=== PATIENT | male | born 1935 | race Caucasian/White ===

== ENCOUNTER 2022-03-06 11:36 | Day surgery (SDC) | payer MEDICARE ==
[2022-03-01 13:00] LABS: BASOPHILS % (AUTO) 0.7 % (0-1); EOSINOPHILS # (AUTO) 0.1 X10'3 (0-0.9); HEMATOCRIT 27.8 % (42.0-52.0); HEMOGLOBIN 9.1 g/dl (14.0-17.9); LYMPHOCYTES # (AUTO) 0.5 X10'3 (1.1-4.8); LYMPHOCYTES % (AUTO) 8.7 % (21-51); MEAN CORPUSCULAR HEMOGLOBIN 34.9 PG (27.0-31.0); MEAN CORPUSCULAR HGB CONC 32.6 g/dL (33.0-36.5); MEAN CORPUSCULAR VOLUME 107.4 FL (78-98); MEAN PLATELET VOLUME 6.5 FL (7.4-10.4); MONOCYTES # (AUTO) 0.6 X10'3 (0-0.9); MONOCYTES % (AUTO) 10.5 % (2-12); NEUTROPHILS # (AUTO) 4.4 X10'3 (1.8-7.7); NEUTROPHILS % (AUTO) 78.1 % (42-75); PLATELET COUNT 194 X10'3 (140-440); RED BLOOD COUNT 2.59 X10'6 (4.70-6.10); RED CELL DISTRIBUTION WIDTH 17.9 % (11.5-14.5); WHITE BLOOD COUNT 5.6 X10'3 (4.5-11.0)
[2022-03-01 13:10] LABS: ALBUMIN 2.9 G/DL (3.4-5.0); ANION GAP 5 (8-16); BLOOD UREA NITROGEN 31 MG/DL (7-18); BUN/CREATININE RATIO 27.4 (5.4-32.0); CALCIUM 8.9 MG/DL (8.5-10.1); CHLORIDE 103 MMOL/L (99-107); CREATININE 1.13 MG/DL (0.60-1.10); GLUCOSE 92 MG/DL (70-104); POTASSIUM 4.4 MMOL/L (3.5-5.1); SODIUM 138 MMOL/L (135-145); TOTAL CARBON DIOXIDE 29.6 MMOL/L (24-32); eGFR 61 ML/MIN
[2022-03-01 13:13] LABS: APTT 27 SECONDS (22-32)
[~2022-03-06] VITALS: Ht 182.9 cm; Wt 50.3 kg
[2022-03-06] VITALS (10 sets, daily range): BP systolic 108–163; BP diastolic 61–77
[~2022-03-06 11:36] MED LIST: iohexol 350MG/ML 100ml bottle IV ONE
[2022-03-06] MEDS ORDERED: diphenhydrAMINE 25mg capsule PO PRN (12:15)
[2022-03-06] MEDS ORDERED: normal saline 1,000 ML IV SCH (12:15)
[2022-03-06] MEDS ORDERED: LORazepam 0.5 MG tablet PO PRN (12:15)
[2022-03-06] MEDS ORDERED: APIX5TAB3 PO (12:27)
[2022-03-06] MEDS ORDERED: METO50TA16 PO (12:38)
[2022-03-06] MEDS ORDERED: LIDOcaine 1% 30ml preserv. free vial ONE (13:53)
[2022-03-06] MEDS ORDERED: heparin 1,000unit/ml 10ml vial 10 ML ONE (13:53)
[2022-03-06] MEDS ORDERED: verapamil 2.5 mg/ml inj IV ONE (13:53)
[2022-03-06] MEDS ORDERED: midazolam 1 mg/ML 2ml injection ONE (13:53)
[2022-03-06] MEDS ORDERED: fentaNYL/PF 50MCG/1 ML 2ML syringe ONE (13:53)
[2022-03-06] MEDS ORDERED: nitroGLYCERIN-Tridil 50MG/D5W 250 ML IV ONE (13:53)
[2022-03-06 14:48] LABS: ISTAT HGB ART 8.8 g/dl (14.0-18.0); ISTAT Hct ART 26 %PCV (42-52); ISTAT O2 SATURATION ARTERIAL 99 % (95-98); ISTAT SOURCE ART
[2022-03-06 16:07] LABS: ISTAT Hct MIX 26 %PCV (42-52); ISTAT O2 SATURATION MIX VENOUS 68 % (60-80); ISTAT SOURCE VEN
[2022-03-06] MEDS ORDERED: ondansetron/PF 4mg/2ml inj IV PRN (16:30)
[2022-03-06] MEDS ORDERED: normal saline 1000ml 1,000 ML IV SCH (16:30)
[2022-03-06] MEDS ORDERED: proCHLORperazine 10 MG/2 ml inj IV PRN (16:30)
[2022-03-07] MEDS ORDERED: ATOR40TA72 PO (13:39)
[2022-03-07] MEDS ORDERED: AMIO200T61 PO (17:11)
== END 2022-03-06 20:00 | disposition home or self-care (01) ==
LOC: SSTAY O 11:36 → EDBD 17:00 → SSTAY O 20:00
PROVIDERS: ATTEND Internal Medicine Interventional Cardiology
DX: I35.0 Nonrheumatic aortic (valve) stenosis (principal); J44.9 Chronic obstructive pulmonary disease, unspecified; I10 Essential (primary) hypertension; I48.91 Unspecified atrial fibrillation; E78.5 Hyperlipidemia, unspecified; D53.9 Nutritional anemia, unspecified; Z79.899 Other long term (current) drug therapy; Z79.01 Long term (current) use of anticoagulants; Z88.0 Allergy status to penicillin; Z87.891 Personal history of nicotine dependence
CPT/HCPCS: 36415; 80048; 82803; 85014; 85025; 85610; 85730; 93005; 93460; C1751; C1769; C1894; J1644; J2250; J3010; J3490; 99152; 99153; A4620; A5120; Q9967

== ENCOUNTER 2022-04-05 12:24 | Emergency (ER) | payer MEDICARE ==
[~2022-04-05] VITALS: Ht 182.9 cm; Wt 60.0 kg
[~2022-04-05 12:24] MED LIST changes: +AMIO200T61 PO; +APIX5TAB3 PO; +ATOR40TA72 PO; +METO50TA16 PO; -iohexol 350MG/ML 100ml bottle IV ONE
[2022-04-05 13:56] LABS: BASOPHILS % (AUTO) 0 % (0-1); EOSINOPHILS % (AUTO) 0 % (0-6); HEMATOCRIT 26.3 % (42.0-52.0); HEMOGLOBIN 8.5 g/dl (14.0-17.9); LYMPHOCYTES # (AUTO) 0.2 X10'3 (1.1-4.8); LYMPHOCYTES % (AUTO) 1.3 % (21-51); MEAN CORPUSCULAR HEMOGLOBIN 35.3 PG (27.0-31.0); MEAN CORPUSCULAR HGB CONC 32.4 g/dL (33.0-36.5); MEAN CORPUSCULAR VOLUME 108.7 FL (78-98); MONOCYTES % (AUTO) 6.1 % (2-12); NEUTROPHILS # (AUTO) 14.5 X10'3 (1.8-7.7); NEUTROPHILS % (AUTO) 92.6 % (42-75); PLATELET COUNT 151 X10'3 (140-440); RED BLOOD COUNT 2.42 X10'6 (4.70-6.10); WHITE BLOOD COUNT 15.7 X10'3 (4.5-11.0)
[2022-04-05 14:12] LABS: ALANINE AMINOTRANSFERASE 13 U/L (12-78); ALBUMIN 2.4 G/DL (3.4-5.0); ALBUMIN/GLOBULIN RATIO 0.5 (1.1-1.5); ALKALINE PHOSPHATASE 66 IU/L (46-116); ANION GAP 9 (8-16); ASPARTATE AMINO TRANSFERASE 23 U/L (10-37); BILIRUBIN,TOTAL 1.1 MG/DL (0.1-1.0); BLOOD UREA NITROGEN 47 MG/DL (7-18); BUN/CREATININE RATIO 29.6 (5.4-32.0); CALCIUM 8.6 MG/DL (8.5-10.1); CHLORIDE 105 MMOL/L (99-107); CREATININE 1.59 MG/DL (0.60-1.10); GLUCOSE 114 MG/DL (70-104); POTASSIUM 4.6 MMOL/L (3.5-5.1); SODIUM 139 MMOL/L (135-145); TOTAL CARBON DIOXIDE 24.8 MMOL/L (24-32); TOTAL PROTEIN 7.6 G/DL (6.4-8.2); eGFR 41 ML/MIN
[2022-04-05 14:39] LABS: ANISOCYTOSIS 2+; LARGE PLATELETS FEW; PLATELET ESTIMATE NORMAL
[2022-04-05] MEDS ORDERED: LIDOcaine 2% 10ml TOPICAL JELLY (Urojet) MM ONE (14:40)
[2022-04-05 15:11] LABS: CLARITY,URINE CLOUDY (Clear); COLOR,URINE YELLOW (Yellow); GLUCOSE, URINE NEGATIVE (Neg); KETONES,URINE NEGATIVE (Neg); LEUKOCYTE ESTERASE ,URINE NEGATIVE (Neg); NITRITES, URINE NEGATIVE (Neg); OCCULT BLOOD,URINE LARGE (Neg); PH,URINE 5.5 (4.8-8.0); PROTEIN,URINE 30 mg/dl (Neg); UROBILINOGEN,URINE 0.2 E.U/dL (0.2-1.0)
[2022-04-05 15:17] LABS: UA COLLECTION TYPE NON-SPECIFIED
[2022-04-05 15:41] LABS: HYALINE CASTS 0-3 /LPF (NEGATIVE); SQUAMOUS EPITHELIAL CELL,UR FEW /LPF (FEW)
[2022-04-05 15:42] LABS: FINE GRANULAR CAST 0-3 /LPF (NEGATIVE); RBC,URINE 50-100 /HPF (0-2)
[2022-04-05 15:43] LABS: BACTERIA,URINE 1+ /HPF (Neg); MUCUS STRANDS FEW /LPF (Neg); WBC,URINE 0-4 /HPF (0-4)
[2022-04-05 16:21] VITALS: BP 110/70
== END 2022-04-05 16:26 | disposition home or self-care (01) ==
LOC: ER 12:25
DX: R53.1 Weakness (principal); E86.0 Dehydration; Z88.0 Allergy status to penicillin; Z88.2 Allergy status to sulfonamides
CPT/HCPCS: 36415; 71045; 80053; 81001; 85008; 85025; 93005; 99285; C1758

== ENCOUNTER 2022-07-16 06:37 | Emergency (ER) | payer MEDICARE ==
[~2022-07-16] VITALS: Ht 182.9 cm; Wt 52.0 kg
[~2022-07-16 06:37] MED LIST changes: -AMIO200T61 PO
[2022-07-16] MEDS ORDERED: normal saline 1000ML IV soln IVB ONE (06:50)
[2022-07-16 07:44] LABS: BASOPHILS % (AUTO) 0.9 % (0-1); HEMATOCRIT 28.3 % (42.0-52.0); HEMOGLOBIN 9.5 g/dl (14.0-17.9); LYMPHOCYTES # (AUTO) 0.6 X10'3 (1.1-4.8); LYMPHOCYTES % (AUTO) 14.2 % (21-51); MEAN CORPUSCULAR HEMOGLOBIN 37.6 PG (27.0-31.0); MEAN CORPUSCULAR HGB CONC 33.6 g/dL (33.0-36.5); MEAN CORPUSCULAR VOLUME 111.8 FL (78-98); MEAN PLATELET VOLUME 6.3 FL (7.4-10.4); MONOCYTES # (AUTO) 0.4 X10'3 (0-0.9); NEUTROPHILS # (AUTO) 3.1 X10'3 (1.8-7.7); NEUTROPHILS % (AUTO) 73.9 % (42-75); PLATELET COUNT 274 X10'3 (140-440); RED BLOOD COUNT 2.53 X10'6 (4.70-6.10); RED CELL DISTRIBUTION WIDTH 17.8 % (11.5-14.5); WHITE BLOOD COUNT 4.2 X10'3 (4.5-11.0)
[2022-07-16 07:46] VITALS: BP 129/70
[2022-07-16 08:02] LABS: ALANINE AMINOTRANSFERASE 15 U/L (12-78); ALBUMIN 2.7 G/DL (3.4-5.0); ALKALINE PHOSPHATASE 79 IU/L (46-116); ASPARTATE AMINO TRANSFERASE 23 U/L (10-37); BILIRUBIN,TOTAL 0.6 MG/DL (0.1-1.0); BLOOD UREA NITROGEN 29 MG/DL (7-18); CALCIUM 9.1 MG/DL (8.5-10.1); CHLORIDE 102 MMOL/L (99-107); GLUCOSE 93 MG/DL (70-104); LIPASE 120 U/L (73-393); POTASSIUM 4.5 MMOL/L (3.5-5.1); SODIUM 136 MMOL/L (135-145)
[2022-07-16 08:37] LABS: ANION GAP 3 (8-16); BUN/CREATININE RATIO 28.7 (5.4-32.0); CREATININE 1.01 MG/DL (0.60-1.10); TOTAL CARBON DIOXIDE 31.4 MMOL/L (24-32); eGFR 70 ML/MIN
[2022-07-16 08:38] LABS: ALBUMIN/GLOBULIN RATIO 0.5 (1.1-1.5)
[2022-07-16 09:04] LABS: CLARITY,URINE CLEAR (Clear); COLOR,URINE YELLOW (Yellow); GLUCOSE, URINE NEGATIVE (Neg); KETONES,URINE NEGATIVE (Neg); LEUKOCYTE ESTERASE ,URINE NEGATIVE (Neg); NITRITES, URINE NEGATIVE (Neg); OCCULT BLOOD,URINE TRACE-INTACT (Neg); PROTEIN,URINE NEGATIVE (Neg); UROBILINOGEN,URINE 0.2 E.U/dL (0.2-1.0)
[2022-07-16] MEDS ORDERED: proCHLORperazine 10 MG/2 ml inj IV ONE (09:05)
[2022-07-16 09:11] LABS: UA COLLECTION TYPE CLN CATCH MIDSTREAM
[2022-07-16 09:12] LABS: WBC,URINE 0-4 /HPF (0-4)
[2022-07-16 09:13] LABS: BACTERIA,URINE NONE SEEN /HPF (Neg); SQUAMOUS EPITHELIAL CELL,UR FEW /LPF (FEW)
[2022-07-16 09:41] LABS: PLATELET ESTIMATE NORMAL
[2022-07-16 09:42] LABS: HYPOCHROMASIA 1+
[2022-07-16 09:43] LABS: ANISOCYTOSIS 1+; POIKILOCYTOSIS 2+
[2022-07-16 09:44] LABS: TARGET CELLS 2+
== END 2022-07-16 11:34 | disposition home or self-care (01) ==
LOC: ER 06:38
DX: S41.111A Laceration without foreign body of right upper arm, initial encounter (principal); S00.01XA Abrasion of scalp, initial encounter; Z98.890 Other specified postprocedural states; Z88.0 Allergy status to penicillin; Z88.1 Allergy status to other antibiotic agents; Z79.899 Other long term (current) drug therapy; W19.XXXA Unspecified fall, initial encounter; Y93.89 Activity, other specified; Y92.89 Other specified places as the place of occurrence of the external cause; Y99.8 Other external cause status
CPT/HCPCS: 36415; 80053; 81001; 83690; 85008; 85025; 96360; 99284; J7030; A6258; A6449

== ENCOUNTER 2022-08-29 11:27 | Emergency (ER) | payer MEDICARE ==
[~2022-08-29] VITALS: Ht 177.8 cm; Wt 59.1 kg
[~2022-08-29 11:27] MED LIST changes: +APIX2.5T PO; -APIX5TAB3 PO; +LOP12.5T PO; -METO50TA16 PO; +MULT-1074 PO
[2022-08-29 14:11] LABS: BASOPHILS % (AUTO) 0.4 % (0-1); EOSINOPHILS % (AUTO) 0.4 % (0-6); HEMATOCRIT 25.7 % (42.0-52.0); HEMOGLOBIN 8.6 g/dl (14.0-17.9); LYMPHOCYTES # (AUTO) 0.3 X10'3 (1.1-4.8); LYMPHOCYTES % (AUTO) 3.2 % (21-51); MEAN CORPUSCULAR HEMOGLOBIN 35.9 PG (27.0-31.0); MEAN CORPUSCULAR HGB CONC 33.5 g/dL (33.0-36.5); MEAN PLATELET VOLUME 6.7 FL (7.4-10.4); MONOCYTES # (AUTO) 0.6 X10'3 (0-0.9); NEUTROPHILS # (AUTO) 8.4 X10'3 (1.8-7.7); PLATELET COUNT 276 X10'3 (140-440); RED CELL DISTRIBUTION WIDTH 18.2 % (11.5-14.5); WHITE BLOOD COUNT 9.3 X10'3 (4.5-11.0)
[2022-08-29 14:22] LABS: ALANINE AMINOTRANSFERASE 25 U/L (12-78); ALBUMIN 1.7 G/DL (3.4-5.0); ALBUMIN/GLOBULIN RATIO 0.3 (1.1-1.5); ALKALINE PHOSPHATASE 79 IU/L (46-116); ANION GAP 4 (8-16); ASPARTATE AMINO TRANSFERASE 39 U/L (10-37); BILIRUBIN,TOTAL 0.6 MG/DL (0.1-1.0); BLOOD UREA NITROGEN 27 MG/DL (7-18); BUN/CREATININE RATIO 32.9 (5.4-32.0); CALCIUM 8.5 MG/DL (8.5-10.1); CHLORIDE 99 MMOL/L (99-107); CREATININE 0.82 MG/DL (0.60-1.10); GLUCOSE 103 MG/DL (70-104); POTASSIUM 4.8 MMOL/L (3.5-5.1); SODIUM 134 MMOL/L (135-145); TOTAL CARBON DIOXIDE 30.8 MMOL/L (24-32); TOTAL PROTEIN 6.9 G/DL (6.4-8.2); eGFR 89 ML/MIN
[2022-08-29 14:31] LABS: MAGNESIUM 1.9 MG/DL (1.5-2.4)
[2022-08-29 15:30] VITALS: BP 145/82
--- NOTE | 2022-08-29 15:31 | NUR ---
Asked to consult on pt by ER staff. Pt was just dc'd from here approx 4 days ago and returned home to his family. Once home pt still proved to be quite weak and was just too much for family to handle. They are now requesting rehab. As they live in [place] I suggested [facility] in [place]. Contacted facility and spoke w/ their intake person Meseret. After some review she can take pt today. Met w/ family and they are agreeable. Transfer paperwork along w/ notes from recent admission faxed to her. She will set up transport. Pt's RN Karlene brought up to date on developments, she will call report. Pt's COVID is currently pending. Will continue to monitor.
== END 2022-08-29 17:21 ==
LOC: ER 11:28
DX: R53.1 Weakness (principal); Z20.822 Contact with and (suspected) exposure to COVID-19; R62.7 Adult failure to thrive; I50.9 Heart failure, unspecified; Z88.0 Allergy status to penicillin; Z88.2 Allergy status to sulfonamides
CPT/HCPCS: 36415; 71045; 80053; 83735; 83880; 84484; 85025; 87811; 93005; 99285; J7030